=== PATIENT | female | born 1960 | race Caucasian/White ===

== ENCOUNTER 2016-06-06 09:33 | Emergency (ER) | payer OTHER ==
[2016-06-06 09:45] VITALS: TEMP 97.9
--- NOTE | 2016-06-06 09:49 | EDPHY ---
H & P Time Seen by Provider: 06/06/16 09:48 HPI/ROS: CHIEF COMPLAINT: Dizziness, confusion, hit head Sunday. HISTORY OF PRESENT ILLNESS: The patient is a 55-year-old female who tripped on a carpet Sunday night and hit her head on the wall. She did not lose consciousness. She denies preceding symptoms such as dizziness or chest pain. She has had a headache since that time. Today she woke up with dizziness and had mild confusion. The dizziness is described as room-spinning that worsens when she moves. She has had mild shoulder and posterior neck pain since falling. No double vision. No fever, chills, chest pain, shortness of breath, palpitations, vomiting, diarrhea, urinary complaints, lightheadedness. She has been taking Aleve for the headache to no effect. She is not anticoagulated on blood-thinners. REVIEW OF SYSTEMS: Aside from elements discussed in the HPI, a comprehensive 10-point review of systems was reviewed and is negative. PAST MEDICAL HISTORY: Lupus, migraines, cholecystectomy, pneumonia, osteoporosis. SOCIAL HISTORY: Smoker, no alcohol use, no illicit drug use. VITAL SIGNS: Reviewed by me GENERAL: Well-developed, well-nourished, resting comfortably in no respiratory distress. HEENT: Atraumatic. Eyes: Difficulty looking medially with both eyes. No icterus , no injection. Mouth: moist mucous membranes. No erythema or lesions. Neck: supple with no adenopathy. No midline pain, from. LUNGS: Clear to auscultation bilaterally, no wheezes, rhonchi or rales. CARDIAC: Regular rate and rhythm, no rubs, murmurs or gallops. ABDOMEN: Soft, nontender, nondistended, bowel sounds normal. BACK: No CVA tenderness. EXTREMITIES: No trauma. No edema. Range of motion is normal throughout. NEURO: Alert and oriented, cranial nerves II through XII are intact. Motor strength 5 over 5 in all major muscle groups. Sensation intact to light touch. Normal gait. SKIN: Warm and dry, no rash. PSYCHIATRIC: Normal mentation, no agitation. Portions of this note were transcribed by a biomedical electronics technician. I personally performed a history, physical exam, medical decision making, and confirmed accuracy of information the transcribed note. Smoking Status: Current every day smoker Constitutional: Initial Vital Signs Temperature (C) 36.6 C 06/06/16 09:41 Heart Rate 105 H 06/06/16 09:41 Respiratory Rate 16 06/06/16 09:41 Blood Pressure 108/68 06/06/16 09:41 O2 Sat (%) 98 06/06/16 09:41 O2 Delivery Mode Room Air Allergies/Adverse Reactions: ketorolac tromethamine [From Toradol] Allergy (Mild, Verified 06/06/16 09:40) Abdominal Pain pregabalin [From Lyrica] Allergy (Verified 06/06/16 09:40) prochlorperazine edisylate [From Compazine] Allergy (Verified 06/06/16 09:40) prochlorperazine maleate [From Compazine] Allergy (Verified 06/06/16 09:40) Sulfa (Sulfonamide Antibiotics) Allergy (Verified 06/06/16 09:40) Home Medications: Medication Instructions Recorded Amitriptyline HCl [Elavil 50 mg 50 mg PO HS 03/20/14 (*)] Hydroxychloroquine Sulfate 300 mg PO DAILY 03/20/14 [Plaquenil 200 mg (*)] Venlafaxine Xr [Effexor Xr 75MG 225 mg PO DAILY 03/20/14 (*)] Levothyroxine [Synthroid 75 mcg 75 mg PO DAILY06 05/30/14 (*)] Ibuprofen [Motrin] 600 mg PO TID #0 tab 11/17/14 Meclizine HCl [Meclizine HCl 25 mg 25 mg PO TID #15 tab 06/06/16 (RX,OTC)] oxyCODONE/APAP 5/325 [Percocet 1 tab PO QID PRN #10 tab 06/06/16 5/325 (*)] Medical Decision Making - Diagnostics EKG Interpretation: 12-LEAD EKG: Please see the full report in [facility]. My interpretation: Normal sinus rhythm with borderline T abnormalities ant-lat leads. Imaging: Study: CT of the head Indication: Head injury with headache and confusion. Results: negative. The study was read by the radiologist, Dr. Navarrete. I viewed the images myself on the PACS system. X-ray right shoulder was obtained. I viewed the images myself on the PACS system. My interpretation of the images is: no acute process. The radiologist interpretation is pending at this time. I discussed the x-ray findings with the patient. Study: MRI of the: Brain Indication: confusion post head trauma, difficulty with EOM Impression: 1. A few stable nonspecific hyperintense T2/FLAIR signal abnormalities in the white matter of bilateral cerebral hemispheres. Differential diagnosis includes microvascular ischemic disease, post -infectious /post-inflammatory sequela, atypical demyelinating disease, or migraine-related sequela. 2. No new intracranial abnormality seen. I viewed the images myself on the PACS system. ED Course/Re-evaluation: An IV was established and labs ordered. Fentanyl 50mcg IV administered for headache. Labs reassuring, EKG with some nonspecific t wave changes, troponin negative. Head CT neg for acute traumatic abnormalities. Patient with continued complaints of vertigo and some limitation of medial gaze and upward gaze. MRI ordered; negative for acute findings. Patient received meclizine for vertigo; symptoms improved. Will refer to Dr Fairbanks for ongoing treatment of her head injury complaints. Differential Diagnosis: Differential diagnoses the patient's presenting complaints was considered including but not limited to intracranial injury, TIA, ischemic cerebrovascular accident, hemorrhagic cerebrovascular accident, hypoglycemia, complex migraine, metastases, tumor, seizure, or electrolyte abnormality - Data Points Laboratory Results: Laboratory Results 06/06/16 10:35 06/06/16 10:35 06/06/16 06/06/16 10:35 10:35 WBC 5.65 10^3/uL 10^3/uL (3.80-9.50) RBC 3.66 10^6/uL L 10^6/uL (4.18-5.33) Hgb 12.9 g/dL g/dL (12.6-16.3) Hct 37.4 % L % (38.0-47.0) MCV 102.2 fL H fL (81.5-99.8) MCH 35.2 pg H pg (27.9-34.1) MCHC 34.5 g/dL g/dL (32.4-36.7) RDW 11.5 % % (11.5-15.2) Plt Count 234 10^3/uL 10^3/uL (150-400) MPV 9.6 fL fL (8.7-11.7) Neut % (Auto) 71.2 % % (39.3-74.2) Lymph % (Auto) 19.6 % % (15.0-45.0) Knott % (Auto) 5.8 % % (4.5-13.0) Eos % (Auto) 2.5 % % (0.6-7.6) Baso % (Auto) 0.5 % % (0.3-1.7) Nucleat RBC Rel Count 0.0 % % (0.0-0.2) Absolute Neuts (auto) 4.02 10^3/uL 10^3/uL (1.70-6.50) Absolute Lymphs (auto) 1.11 10^3/uL 10^3/uL (1.00-3.00) Absolute Monos (auto) 0.33 10^3/uL 10^3/uL (0.30-0.80) Absolute Eos (auto) 0.14 10^3/uL 10^3/uL (0.03-0.40) Absolute Basos (auto) 0.03 10^3/uL 10^3/uL (0.02-0.10) Absolute Nucleated RBC 0.00 10^3/uL 10^3/uL (0-0.01) Immature Gran % 0.4 % % (0.0-1.1) Immature Gran # 0.02 10^3/uL 10^3/uL (0.00-0.10) Sodium 141 mEq/L mEq/L (134-144) Potassium 3.9 mEq/L mEq/L (3.5-5.2) Chloride 107 mEq/L mEq/L (97-110) Carbon Dioxide 24 mEq/l mEq/l (22-31) Anion Gap 10 mEq/L mEq/L (8-16) BUN 6 mg/dL L mg/dL (7-23) Creatinine 0.7 mg/dL mg/dL (0.6-1.0) Estimated GFR > 60 Glucose 84 mg/dL mg/dL (70-100) Calcium 8.9 mg/dL mg/dL (8.5-10.4) Troponin I < 0.012 ng/mL ng/mL (0-0.034) Medications Given: Discontinued Medications Fentanyl (Sublimaze) 50 mcg IVP EDNOW ONE Stop: 06/06/16 10:42 Last Admin: 06/06/16 10:51 Dose: 50 mcg Fentanyl (Sublimaze) 50 mcg IVP EDNOW ONE Stop: 06/06/16 13:06 Last Admin: 06/06/16 13:30 Dose: 50 mcg Sodium Chloride (Ns) 1,000 mls @ 0 mls/hr IV ONCE ONE PRN Reason: Wide Open Stop: 06/06/16 10:15 Last Admin: 06/06/16 10:45 Dose: 1,000 mls Meclizine HCl (Meclizine Hcl) 25 mg PO EDNOW ONE Stop: 06/06/16 11:44 Last Admin: 06/06/16 11:48 Dose: 25 mg Ondansetron HCl (Zofran) 4 mg IVP EDNOW ONE Stop: 06/06/16 13:06 Last Admin: 06/06/16 13:30 Dose: 4 mg Departure - Departure Disposition: Home, Routine, Self-Care Clinical Impression: Vertigo Headache Qualifiers: Headache type: unspecified Headache chronicity pattern: acute headache Intractability: not intractable Qualified Code(s): R51 - Headache Condition: Good Instructions: Vertigo (ED), Dizziness (ED), Acute Headache (ED) Additional Instructions: ok to take meclizine as needed for vertigo. use zofran for nausea Please follow up with Dr Carmona in 2-3 days if no improvement in your symptoms Be seen sooner if you are worsening. Referrals: Marian Carmona MD [Primary Care Provider] - As per Instructions Prescriptions: Meclizine HCl [Meclizine HCl 25 mg (RX,OTC)] 25 mg PO TID #15 tab oxyCODONE/APAP 5/325 [Percocet 5/325 (*)] 1 tab PO QID PRN #10 tab PRN Reason: Pain Report Scribed for: Linn Torres Report Scribed by: Gaudencio Vargas Date of Report: 06/06/16 Time of Report: 10:10
[2016-06-06] MEDS ORDERED: NS 1,000 ML IV ONE (10:14)
[2016-06-06] MEDS ORDERED: fentaNYL 100 MCG/2 ML INJ IVP ONE ×2 (10:41→13:05)
[2016-06-06 10:46] LABS: % IMMATURE GRANULYOCYTES 0.4 % (0.0-1.1); ABSOLUTE IMMATURE GRANULOCYTES 0.02 10^3/uL (0.00-0.10); ADD DIFF? NO; ADD MORPH? NO; ADD SCAN? NO; ATYPICAL LYMPHOCYTE FLAG 10 (0-99); FRAGMENT RBC FLAG 0 (0-99); HEMATOCRIT 37.4 % (38.0-47.0); HEMOGLOBIN 12.9 g/dL (12.6-16.3); LEFT SHIFT FLG 0 (0-99); LIPEMIA HEMOLYSIS FLAG 90 (0-99); MEAN CELL HEMOGLOBIN 35.2 pg (27.9-34.1); MEAN CELL HEMOGLOBIN CONCENTR. 34.5 g/dL (32.4-36.7); MEAN CELL VOLUME 102.2 fL (81.5-99.8); MEAN PLATELET VOLUME 9.6 fL (8.7-11.7); PLATELET CLUMPS FLAG 0 (0-99); PLATELET COUNT 234 10^3/uL (150-400); RED BLOOD CELL COUNT 3.66 10^6/uL (4.18-5.33); RED CELL DISTRIBUTION WIDTH 11.5 % (11.5-15.2)
--- NOTE | 2016-06-06 10:49 | CPEKG ---
Heart Rate: 87 RR Interval: 690 P-R Interval: 148 QRSD Interval: 80 QT Interval: 400 QTC Interval: 482 P [place]: 64 QRS [place]: 33 T Wave [place]: 73 EKG Severity - BORDERLINE ECG - EKG Impression: SINUS RHYTHM EKG Impression: BORDERLINE T ABNORMALITIES, ANT-LAT LEADS Electronically Signed By: Linn Torres 06-Jun-2016 21:54:16
[2016-06-06 11:06] LABS: ANION GAP 10 mEq/L (8-16); CALCIUM 8.9 mg/dL (8.5-10.4); CARBON DIOXIDE 24 mEq/l (22-31); CHLORIDE 107 mEq/L (97-110); CREATININE 0.7 mg/dL (0.6-1.0); GLOMERULAR FILTRATION RATE > 60; GLUCOSE 84 mg/dL (70-100); POTASSIUM 3.9 mEq/L (3.5-5.2); SODIUM 141 mEq/L (134-144)
--- NOTE | 2016-06-06 11:14 | CT ---
Noncontrast Head CT 1026 hours History: Fell yesterday with persistent dizziness, headache, and confusion. Technique: Standard noncontrast head CT protocol utilizing axial images was acquired through the ca lvarium. Images were reconstructed in multiple planes as well. Dose reduction techniques were utiliz ed. Comparison to prior CT study of 05/30/2014 and MRI study from 09/20/2013. Findings: There is stable focal area of decreased attenuation right posterior frontal subcortical wh ite matter. Otherwise, the cerebral parenchyma has a normal attenuation. There are no significant ma sses, intracranial hemorrhage, subdural collections, or evidence of recent cerebral infarction. The bones are unremarkable. The paranasal sinuses are clear. Impression: 1. No acute intracranial abnormality seen. 2. Stable focal hypodense area right posterior frontal subcortical white matter that could represent focal prominent Virchow-Elkin space versus sequela from previous gliosis secondary to migraines, va sculitis, or small vessel white matter ischemic change. These findings were discussed by telephone with Dr. Linn Torres at 1112hrs.
[2016-06-06 11:15] LABS: TROPONIN I < 0.012 ng/mL (0-0.034)
[2016-06-06] MEDS ORDERED: MECLIZINE HCL 25 MG TAB PO ONE (11:43)
[2016-06-06 12:58] VITALS: RESP 18; O2SAT 95
[2016-06-06] MEDS ORDERED: ONDANSETRON 4 MG/2 ML VIAL IVP ONE (13:05)
[2016-06-06 13:53] VITALS: BP 121/73; PULSE 69
== END 2016-06-06 13:53 | disposition home or self-care (01) ==
DX: R42 Dizziness and giddiness (principal); R51 Headache; F17.200 Nicotine dependence, unspecified, uncomplicated
CPT/HCPCS: 70450; 70551; 73030; 93005; 96374; 96375; 96376; 99285; J2405; J3010